=== PATIENT | male | born 1965 ===

== ENCOUNTER 2017-01-06 13:14 | Emergency (ER) | payer MEDICAID, OTHER ==
[2017-01-06 13:36] VITALS: BMI 29.0
--- NOTE | 2017-01-06 13:44 | ED PDOC ---
Arrival/HPI - General Time Seen by Provider: 01/06/17 13:19 Historian: Patient - History of Present Illness Narrative History of Present Illness (Text): 01/06/17 13:31 A 51 year old male presents to the emergency department requesting information concerning a family matter. Patient reports he discovered his was being unfaithful. 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 Patient was referred to the emergency room. Patient denies any suicidal ideation, homicidal ideation or hallucinations. As per nurse Cadena, EMS also denied any suicidal/homicidal ideation. Patient denies any physical complaints. Time/Duration: Prior to Arrival Past Medical History - Provider Review Nursing Documentation Reviewed: Yes - Tetanus Immunization Tetanus Immunization: Up to Date - Psychiatric Hx Depression: No Hx Emotional Abuse: No Hx Physical Abuse: No - Past Surgical History Past Surgical History: No Previous - Suicidal Assessment Feels Threatened In Home Enviroment: No Family/Social History - Physician Review Nursing Documentation Reviewed: Yes Family/Social History: No Known Family HX Hx Alcohol Use: Yes Allergies/Home Meds Allergies/Adverse Reactions: Allergies No Known Allergies Allergy (Verified 08/17/13 21:46) Home Medications: Home Meds Medication Instructions Recorded Confirmed MetFORMIN [glucoPHAGE] 500 mg PO DAILY 08/17/13 01/06/17 Review of Systems - Physician Review All systems were reviewed & negative as marked: Yes - Review of Systems Constitutional: Normal Psychiatric: Normal. absent: Suicidal Ideation (/homicidal ideation/ hallucination) Physical Exam Appearance: Positive for: Well-Appearing, Non-Toxic, Comfortable Pain Distress: None Mental Status: Positive for: Alert and Oriented X 3 - Systems Exam Head: Present: Atraumatic, Normocephalic Pupils: Present: PERRL Extroacular Muscles: Present: EOMI Conjunctiva: Present: Normal Mouth: Present: Moist Mucous Membranes Neck: Present: Normal Range of Motion Respiratory/Chest: Present: Clear to Auscultation, Good Air Exchange. No: Respiratory Distress, Accessory Muscle Use Cardiovascular: Present: Regular Rate and Rhythm, Normal S1, S2. No: Murmurs Abdomen: Present: Normal Bowel Sounds. No: Tenderness, Distention, Peritoneal Signs Back: Present: Normal Inspection Upper Extremity: Present: Normal Inspection. No: Cyanosis, Edema Lower Extremity: Present: Normal Inspection. No: Edema Neurological: Present: GCS=15, CN II-XII Intact, Speech Normal Skin: Present: Warm, Dry, Normal Color. No: Rashes Psychiatric: Present: Alert, Oriented x 3, Normal Insight, Normal Concentration. No: Suicidal Ideation, Homicidal Ideation, Hallucinations Medical Decision Making ED Course and Treatment: 01/06/17 13:31 Impression: A 51 year old male requesting information concerning a family matter. Patient denies any physical complaints, suicidal ideation, homicidal ideation or hallucinations. Progress Notes: Patient in agreement with plan to be discharged home. He was offered PES/Psych but he wants to go home and go to work. Patient [facility] to [facility]. - Scribe Statement The provider has reviewed the documentation as recorded by the Sarah Hubbard Provider Scribe Attestation: All medical record entries made by the Scribe were at my direction and personally dictated by me. I have reviewed the chart and agree that the record accurately reflects my personal performance of the history, physical exam, medical decision making, and the department course for this patient. I have also personally directed, reviewed, and agree with the discharge instructions and disposition. Disposition/Present on Arrival - Present on Arrival Any Indicators Present on Arrival: Yes History of DVT/PE: No History of Uncontrolled Diabetes: Yes Urinary Catheter: No History Surgical Site Infection Following: None - Disposition Have Diagnosis and Disposition been Completed?: Yes Diagnosis: Depressed Disposition: HOME/ ROUTINE Disposition Time: 13:31 Patient Plan: Discharge Condition: GOOD Discharge Instructions (ExitCare): Depression (ED) Print Language: LIBERIAN Additional Instructions: Mr Kruger, thank you for letting us take care of you today. Your provider was Dr. Bolaños. You were treated for Depression. The emergency medical care you received today was directed at your acute symptoms. If you were prescribed any medication, please fill it and take as directed. It may take several days for your symptoms to resolve. Return to the Emergency Department if your symptoms worsen, do not improve, or if you have any other problems. Please contact your doctor or call one of the physicians/clinics you have been referred to that are listed on the Patient Visit Information form that is included in your discharge packet. Bring any paperwork you were given at discharge with you along with any medications you are taking to your follow up visit. Our treatment cannot replace ongoing medical care by a primary care provider (PCP) outside of the emergency department. Thank you for allowing the [facility] team to be part of your care today. If you had an X-Ray or CT scan: A Radiologist will review the ED reading if any change in treatment is needed we will contact you. If you had a blood, urine, or wound culture: It will take several days for the results, if any change in treatment is needed we will contact you. If you had an STI test: It will take 48 hours for the results. Please call after 1 week if you have not heard back. Referrals: [facility] [Outside] - Follow up with primary [facility] [Outside] - Follow up with primary Forms: WORK NOTE
== END 2017-01-06 14:03 | disposition home or self-care (01) ==
LOC: ED 13:14
DX: F32.9 Major depressive disorder, single episode, unspecified (principal)